=== PATIENT | female | born 1990 | race Two or more races ===

== ENCOUNTER 2024-02-20 16:08 | Emergency (ER) | payer MEDICAID ==
[~2024-02-20] VITALS: Ht 167.6 cm; Wt 97.7 kg
[2024-02-20 17:05] LABS: BASOPHILS % (AUTO) 0.4 % (0.0-2.0); EOSINOPHILS % (AUTO) 3.5 % (1.0-6.0); HEMATOCRIT 39.1 % (36-46); HEMOGLOBIN 11.9 g/dL (12.0-16.0); LYMPHOCYTES # (AUTO) 2.5 K/uL (1.0-4.8); LYMPHOCYTES % (AUTO) 38.2 % (22.0-44.0); MEAN CORPUSCULAR HEMOGLOBIN 21.9 pg (26.0-34.0); MEAN CORPUSCULAR HGB CONC 30.4 G/dL (31.0-37.0); MEAN CORPUSCULAR VOLUME 72 fL (80-100); MONOCYTES # (AUTO) 0.9 K/uL (0.1-1.0); MONOCYTES % (AUTO) 13.3 % (2.0-9.0); NEUTROPHILS # (AUTO) 2.9 K/uL (1.8-7.7); NEUTROPHILS % (AUTO) 44.6 % (40.0-70.0); PLATELET COUNT (AUTO) 262 K/uL (150-450); RED BLOOD CELL COUNT(AUTO) 5.42 MIL/uL (4.00-5.20); RED CELL DISTRIBUTION WIDTH 16.8 % (11.5-14.5); WHITE BLOOD COUNT (AUTO) 6.5 K/uL (4.5-11.0)
[2024-02-20 17:11] LABS: CALCIUM, TOTAL 9.4 mg/dL (8.8-10.5); CREATININE 1.12 mg/dL (0.60-1.30); POTASSIUM 3.9 mmol/L (3.5-5.1)
[2024-02-20 17:29] LABS: RBC MORPHOLOGY COMMENT ABNORMAL RBC MORPH
[2024-02-20 20:32] LABS: COVID AG,FIA SOURCE NASAL SWAB
[2024-02-20 20:45] LABS: APPEARANCE,URINE HAZY (CLEAR); BILIRUBIN,URINE NEGATIVE (NEGATIVE); COLOR,URINE LIGHT YELLOW (YELLOW); GLUCOSE, URINE (UA) NEGATIVE (NEGATIVE); KETONES,URINE NEGATIVE (NEGATIVE); LEUKOCYTE ESTERASE ,URINE TRACE (NEGATIVE); NITRATE,URINE NEGATIVE (NEGATIVE); OCCULT BLOOD,URINE MODERATE (NEGATIVE); PROTEIN,URINE TRACE mg/dL (NEGATIVE); UROBILINOGEN,URINE <=1.0 mg/dL (<=1.0)
[2024-02-20 21:01] LABS: SARS-COV2 (COVID) ANTIGEN,FIA Negative (Negative)
[2024-02-20 21:06] LABS: INFLUENZA TYPE A NEGATIVE FOR TYPE A (NEGATIVE); INFLUENZA TYPE B NEGATIVE FOR TYPE B (NEGATIVE)
[2024-02-20 21:08] LABS: BACTERIA,URINE None Seen /HPF (None Seen); WBC,URINE None Seen /HPF (0-5)
[2024-02-20 21:09] LABS: CALCIUM OXALATE CRYSTALS,UR Moderate /LPF (None Seen)
[2024-02-20 21:23] LABS: ALBUMIN 3.6 g/dL (3.4-5.0); BILIRUBIN,DIRECT 0.1 mg/dL (0.00-0.20); BILIRUBIN,TOTAL 0.1 mg/dL (0.1-1.0); TOTAL PROTEIN, SERUM 7.7 g/dL (6.4-8.2)
[2024-02-20] MEDS ORDERED: KETOROLAC TROMETHAMINE 30 MG/ML VIAL IVP ONE (22:45)
[2024-02-20] MEDS: ACETAMINOPHEN 325 MG TABLET PO ONE (23:18)
[2024-02-20] MEDS: ONDANSETRON HCL 4 MG/2 ML VIAL IVP ONE (23:18)
[2024-02-20] MEDS: KETOROLAC TROMETHAMINE 15 MG/ML VIAL IVP ONE (23:18)
[2024-02-20] MEDS: SODIUM CHLORIDE 0.9% 1,000 ML IV ONE (23:19)
[2024-02-21] MEDS ORDERED: HYDR-4072 PO (00:10)
[2024-02-21] MEDS ORDERED: TAMS0.4C94 PO (00:12)
[2024-02-21 01:31] VITALS: BP 132/69; PULSE 77; RESP 18; TEMP 97.9; O2SAT 100
== END 2024-02-21 02:27 | disposition home or self-care (01) ==
LOC: EMS 16:08
DX: N20.0 Calculus of kidney (principal); R10.9 Unspecified abdominal pain; R11.2 Nausea with vomiting, unspecified; Z20.822 Contact with and (suspected) exposure to COVID-19
CPT/HCPCS: 99284; 96374; 96361; 96375; 87426; 80048; 80076; 81001; 83690; 84702; 85025; 87804; 36415; J1885; J2405; J7030

== ENCOUNTER 2024-02-21 23:58 | Emergency (ER) | payer MEDICAID ==
[~2024-02-21] VITALS: Ht 170.2 cm; Wt 89.5 kg
[~2024-02-21 23:58] MED LIST: HYDR-4072 PO; TAMS0.4C94 PO
[2024-02-22 00:01] VITALS: TEMP 98.5
[2024-02-22] MEDS ORDERED: KETOROLAC TROMETHAMINE 30 MG/ML VIAL IVP ONE (00:15)
[2024-02-22 00:52] LABS: BASOPHILS % (AUTO) 0.6 % (0.0-2.0); EOSINOPHILS % (AUTO) 1.9 % (1.0-6.0); HEMATOCRIT 39.8 % (36-46); HEMOGLOBIN 12.3 g/dL (12.0-16.0); LYMPHOCYTES # (AUTO) 2.3 K/uL (1.0-4.8); LYMPHOCYTES % (AUTO) 23.6 % (22.0-44.0); MEAN CORPUSCULAR HGB CONC 30.8 G/dL (31.0-37.0); MEAN CORPUSCULAR VOLUME 72 fL (80-100); MONOCYTES % (AUTO) 10.8 % (2.0-9.0); NEUTROPHILS % (AUTO) 63.1 % (40.0-70.0); PLATELET COUNT (AUTO) 275 K/uL (150-450); RED BLOOD CELL COUNT(AUTO) 5.56 MIL/uL (4.00-5.20); RED CELL DISTRIBUTION WIDTH 16.6 % (11.5-14.5); WHITE BLOOD COUNT (AUTO) 9.6 K/uL (4.5-11.0)
[2024-02-22] MEDS: SODIUM CHLORIDE 0.9% 1,000 ML IV ONE (00:52)
[2024-02-22] MEDS: ONDANSETRON HCL 4 MG/2 ML VIAL IVP ONE (00:53)
[2024-02-22 00:55] LABS: RBC MORPHOLOGY COMMENT ABNORMAL RBC MORPH
[2024-02-22] MEDS: KETOROLAC TROMETHAMINE 15 MG/ML VIAL IVP ONE (00:58)
[2024-02-22] MEDS ORDERED: SODIUM CHLORIDE 0.9% 100 ML ONE (01:04)
[2024-02-22] MEDS ORDERED: IOHEXOL 350 MG/ML 100 ML VIAL ONE (01:04)
[2024-02-22 01:05] LABS: CALCIUM, TOTAL 10.1 mg/dL (8.8-10.5); CREATININE 1.31 mg/dL (0.60-1.30); POTASSIUM 3.5 mmol/L (3.5-5.1)
[2024-02-22 02:37] LABS: APPEARANCE,URINE CLEAR (CLEAR); BILIRUBIN,URINE NEGATIVE (NEGATIVE); COLOR,URINE COLORLESS (YELLOW); GLUCOSE, URINE (UA) NEGATIVE (NEGATIVE); KETONES,URINE NEGATIVE (NEGATIVE); LEUKOCYTE ESTERASE ,URINE NEGATIVE (NEGATIVE); NITRATE,URINE NEGATIVE (NEGATIVE); OCCULT BLOOD,URINE NEGATIVE (NEGATIVE); PH,URINE 6.5 (5.0-8.0); PROTEIN,URINE NEGATIVE (NEGATIVE); SPECIFIC GRAVITIY, URINE 1.031 (1.003-1.030); UROBILINOGEN,URINE <=1.0 mg/dL (<=1.0)
[2024-02-22 04:01] VITALS: BP 137/82; PULSE 61; RESP 20; O2SAT 98
== END 2024-02-22 05:04 | disposition home or self-care (01) ==
LOC: EMS 23:59
DX: N20.0 Calculus of kidney (principal)
CPT/HCPCS: 99285; 80048; 81003; 84703; 85025; 36415; 74177; 96374; 96361; 96375; Q9967; J1885; J2405; J7030; J7050